=== PATIENT | female | born 1995 | race Caucasian/White ===

== ENCOUNTER 2017-02-19 14:48 | Emergency (ER) ==
[2017-02-19 14:53] VITALS: BP 118/65; TEMP 100; BMI 30.1
[2017-02-19 15:28] LABS: BASOPHILS % (AUTO) 0.1 % (0.0-3.0); EOSINOPHILS # (AUTO) 0.1 K/ul (0.0-0.7); EOSINOPHILS % (AUTO) 0.7 % (0.0-7.0); HEMATOCRIT 39.7 % (37.0-47.0); HEMOGLOBIN 13.7 g/dl (12.0-16.0); IMMATURE GRANULOCYTE % (AUTO) 0.2 % (0.0-5.0); LYMPHOCYTES % (AUTO) 10.6 (10.0-50.0); MEAN CORPUSCULAR HEMOGLOBIN 30.6 pg (27.0-31.0); MEAN CORPUSCULAR HGB CONC 34.5 (31.8-35.4); MEAN CORPUSCULAR VOLUME 88.8 fl (81.0-99.0); MONOCYTES # (AUTO) 0.7 K/uL (0.4-2.0); MONOCYTES % (AUTO) 7.6 (0-10); NEUTROPHILS # (AUTO) 7.3 K/ul (2.0-6.9); NEUTROPHILS % (AUTO) 80.8; PLATELET COUNT 241 10^3/uL (140-440); RED BLOOD COUNT 4.47 10^6/ul (4.20-5.40); WHITE BLOOD COUNT 8.97 K/ul (4.6-10.2)
[2017-02-19 15:29] LABS: BILIRUBIN,URINE 1+ (NEGATIVE); KETONES,URINE 3+ (NEGATIVE); LEUKOCYTE ESTERASE ,URINE Negative (NEGATIVE); NITRITE,URINE Negative (NEGATIVE); PH,URINE 5.5 (5-9); PROTEIN,URINE Trace (NEGATIVE); URINE, BLOOD 1+ (NEGATIVE)
[2017-02-19 15:32] LABS: URINE PREGNANCY INTERNAL QC INTERNAL QC VALID
[2017-02-19 15:40] LABS: FLU INTERNAL QC INTERNAL QC VALID; RAPID FLU A NEGATIVE (NEGATIVE); RAPID FLU B NEGATIVE (NEGATIVE)
[2017-02-19 15:42] LABS: ADD URINE MICROSCOPIC YES
[2017-02-19 15:43] LABS: BACTERIA,URINE TRACE (NOT PRESENT)
[2017-02-19 15:46] LABS: ALBUMIN 4.3 g/dL (3.4-5.0); ALBUMIN/GLOBULIN RATIO 1.23; ANION GAP 11.8; BILIRUBIN,TOTAL 1.21 mg/dL (0.00-1.20); BUN/CREATININE RATIO 10.25; CALCIUM 9.3 mg/dL (8.2-10.2); CREATININE 0.78 mg/dL (0.60-1.30); POTASSIUM 3.8 mmol/L (3.5-5.10); TOTAL PROTEIN 7.8 g/dL (6.4-8.2)
--- NOTE | 2017-02-19 16:04 | CT ---
EXAM: CT Abdomen without contrast. CT Pelvis without contrast. HISTORY: Generalized abdominal pain. Nausea, vomiting, diarrhea. COMPARISON: 11/04/2016. TECHNIQUE: Multiple axial images of the abdomen and pelvis were obtained without intravenous contra st. Images were reformatted in the coronal plane. FINDINGS: Please note that evaluation of the abdominal and pelvic structures is limited due to lack of intravenous contrast. The lung bases are clear. No acute osseous abnormality identified. The liver, gallbladder, pancreas, spleen, adrenal glands, and kidneys demonstrate normal contour. N o calcified renal stones or hydronephrosis detected. The bowel is normal in course and caliber without evidence for obstruction or inflammatory process. The appendix is not seen. Uterus demonstrates normal contour. Urinary bladder is collapsed. Tiny amount of free pelvic fluid noted. No free air identified. Small fat-containing umbilical hernia is present IMPRESSION: No acute abnormality in the abdomen or pelvis.
--- NOTE | 2017-02-19 16:21 | ED.PDOC ---
General ED Provider: Dr. DONG MANRIQUE Chief Complaint: Nausea/Vomiting Stated Complaint: n,v,d Time Seen by Physician: 15:00 Mode of Arrival: Walk-In Information Source: Patient Exam Limitations: No limitations Nursing and Triage Documentation Reviewed and Agree: Yes GI Complaint Exam - Vomiting/Diarrhea Complaint/Exam Onset/Duration: 1 day Symptoms Are: Still present Episodes of Vomiting over last 24 Hours: 1 Episodes of Diarrhea Over Last 24 Hours: 4 Initial Severity: Moderate Current Severity: Moderate Character of Vomiting: Reports: Non-bilious Aggravating: Reports: None Alleviating: Reports: None Associated Signs and Symptoms: Denies: Dizziness, Light-headedness, Melena, Hematemesis, Fever, Abdominal pain, Cramping Related History: Reports: Similar episode Non-GI Risk Factors: Reports: None Surgical Obstruction Risk Factors: Reports: None Related Surgical History: Reports: None Abdominal Findings: Present: None Review of Systems - Review Of Systems Constitutional: Reports: No symptoms Eyes: Reports: No symptoms Ears, Nose, Mouth, Throat: Reports: No symptoms Respiratory: Reports: No symptoms Cardiac: Reports: No symptoms GI: Reports: Diarrhea, Nausea, Vomiting : Reports: No symptoms Musculoskeletal: Reports: No symptoms Skin: Reports: No symptoms Neurological: Reports: No symptoms Endocrine: Reports: No symptoms Hematologic/Lymphatic: Reports: No symptoms All Other Systems: Reviewed and Negative Past Medical History - Past Medical History Endocrine: Reports: None Cardiovascular: Reports: None Respiratory: Reports: None Hematological: Reports: Other (HLH (BLOOD DISORDER)) Gastrointestinal: Reports: None Genitourinary: Reports: None Neuro/Psych: Reports: None Musculoskeletal: Reports: None Cancer: Reports: None Last Menstrual Period: past year--periods irregular Other Pertinent Past Medical History: HLH;HLH stands for hemophagocytic lymphohistiocytosis. - Surgical History General Surgical History: Reports: None - Family History Family History: Reports: None - Social History Smoking Status: Never smoker Hx Substance Use: No Alcohol Screening: Occasionally Physical Exam - Physical Exam Appearance: Well-appearing, No pain distress, Well-nourished Eyes: TYSON, EOMI, Conjunctiva clear ENT: Ears normal, Nose normal, Oropharynx normal Respiratory: Airway patent, Breath sounds clear, Breath sounds equal, Respirations nonlabored Cardiovascular: RRR, Pulses normal, No rub, No murmur GI/: Soft, Nontender, No masses, Bowel sounds normal, No Organomegaly Musculoskeletal: Normal strength, ROM intact, No edema, No calf tenderness Skin: Warm, Dry, Normal color Neurological: Sensation intact, Motor intact, Reflexes intact, Cranial nerves intact, Alert, Oriented Psychiatric: Affect appropriate, Mood appropriate Critical Care Note - Critical Care Note Total Time (mins): 0 Course - Course Hematology/Chemistry: 02/19/17 15:23 02/19/17 15:23 Orders, Labs, Meds: Lab Review 02/19/17 02/19/17 15:15 15:23 WBC 8.97 RBC 4.47 Hgb 13.7 Hct 39.7 MCV 88.8 MCH 30.6 MCHC 34.5 RDW Coeff of Jese 11.9 Plt Count 241 Immature Gran % (Auto) 0.2 Neut % (Auto) 80.8 Lymph % (Auto) 10.6 [place] % (Auto) 7.6 Eos % (Auto) 0.7 Baso % (Auto) 0.1 Immature Gran # (Auto) 0.0 Neut # 7.3 H Lymph # 1.0 [place] # 0.7 Eos # 0.1 Baso # 0.0 Sodium 138 Potassium 3.8 Chloride 105 Carbon Dioxide 25 Anion Gap 11.8 BUN 8 Creatinine 0.78 Estimated GFR (MDRD) 92.00 BUN/Creatinine Ratio 10.25 Glucose 86 Calcium 9.3 Total Bilirubin 1.21 H AST 23 ALT 25 Alkaline Phosphatase 68 Total Protein 7.8 Albumin 4.3 Globulin 3.5 Albumin/Globulin Ratio 1.23 Urine Color Yellow Urine Clarity Clear Urine pH 5.5 Ur Specific [place] 1.025 Urine Protein Trace Urine Glucose (UA) Negative Urine Ketones 3+ Urine Blood 1+ Urine Nitrite Negative Urine Bilirubin 1+ Urine Urobilinogen 0.2 Ur Leukocyte Esterase Negative Urine Microscopic RBC 2-5 Urine Microscopic WBC 0-2 Ur Squamous Epith Cells 2-5 Urine Bacteria Trace Urine Mucus 2+ Urine Test Negative Influenza A (Rapid) Negative Influenza B (Rapid) Negative Orders Category Date Time Status CBC W/ AUTO DIFF Stat LAB 02/19/17 15:23 Completed COMPREHENSIVE METABOLIC PANEL Stat LAB 02/19/17 15:23 Completed MOLECULAR GROUP A STREP Stat LAB 02/19/17 15:15 Results RAPID FLU A/B Stat LAB 02/19/17 15:15 Completed STREP SCREEN Stat LAB 02/19/17 15:15 Results URINALYSIS C & S IF INDICATED Stat LAB 02/19/17 15:15 Completed URINE Stat LAB 02/19/17 15:[address] ABDOMEN/PELVIS WO CONTRAST Stat RADS 02/19/17 15:16 Completed Vital Signs: Temp Pulse Resp BP Pulse Ox 02/19/17 14:48 100 F H 78 16 118/65 96 Departure - Departure Time of Disposition: 16:21 Disposition: HOME SELF-CARE Discharge Problem: Nausea, Vomiting, Viral syndrome Instructions: Viral Syndrome (ED) Condition: Good Pt referred to PMD for follow-up: No Allergies/Adverse Reactions: Allergies No Known Allergies Allergy (Verified 02/19/17 14:55) Home Medications: Ambulatory Orders 1 [No Reported Medications] 07/07/16
== END 2017-02-19 16:34 | disposition home or self-care (01) ==
LOC: ED 14:48
DX: R11.2 Nausea with vomiting, unspecified (principal); B34.9 Viral infection, unspecified
CPT/HCPCS: 36415; 80053; 81001; 81025; 85025; 87651; 87804; 87880; 99283

== ENCOUNTER 2017-07-09 15:52 | Emergency (ER) ==
[2017-07-09 15:53] VITALS: BMI 30.1
[2017-07-09 15:57] VITALS: BP 133/77; TEMP 98.7
--- NOTE | 2017-07-09 16:19 | ED.PDOC ---
General ED Provider: Dr. DONG MANRIQUE Chief Complaint: Abdominal Pain Stated Complaint: menstural cramps Time Seen by Physician: 16:00 (seen with hamzah at all times ) Mode of Arrival: Walk-In Information Source: Patient Exam Limitations: No limitations Nursing and Triage Documentation Reviewed and Agree: Yes GI Complaint Exam - Abdominal Pain Complaint/Exam Onset: Gradual Duration: started her cycle 2 days ago Symptoms Are: Still present Timing: Intermittent Initial Severity: Moderate Current Severity: Moderate Location of Pain: RLQ, LLQ Character: Reports: Cramping Aggravating: Reports: None Alleviating: Reports: None Associated Signs and Symptoms: Denies: Diaphoresis, Fever, Cough, Chest pain, Dizziness, Back pain, Constipation, Blood in stool, Dysuria, Urinary frequency, Decreased urine output, Decreased appetite, Vaginal bleeding, Vaginal discharge , Nausea, Vomiting, Diarrhea, Sore throat, Decreased activity AAA Risk Factors: Reports: None Cardiac Risk Factors: Reports: None Ectopic Risk Factors: Reports: None Ovarian Torsion Risk Factors: Reports: None Surgical Obstruction Risk Factors: Reports: None Related Surgical History: Reports: None Patient Rh Status: Unknown Abdominal Findings: Present: None Review of Systems - Review Of Systems Constitutional: Reports: No symptoms Eyes: Reports: No symptoms Ears, Nose, Mouth, Throat: Reports: No symptoms Respiratory: Reports: No symptoms Cardiac: Reports: No symptoms GI: Reports: Abdominal pain : Reports: No symptoms Musculoskeletal: Reports: No symptoms Skin: Reports: No symptoms Neurological: Reports: No symptoms Endocrine: Reports: No symptoms Hematologic/Lymphatic: Reports: No symptoms All Other Systems: Reviewed and Negative Past Medical History - Past Medical History Previously Healthy: Yes Endocrine: Reports: None Cardiovascular: Reports: None Respiratory: Reports: None Hematological: Reports: Other (HLH (BLOOD DISORDER)) Gastrointestinal: Reports: None Genitourinary: Reports: None Neuro/Psych: Reports: None Musculoskeletal: Reports: None Cancer: Reports: None Last Menstrual Period: 07/09/17 Other Pertinent Past Medical History: HLH;HLH stands for hemophagocytic lymphohistiocytosis. - Surgical History General Surgical History: Reports: None - Family History Family History: Reports: None - Social History Smoking Status: Never smoker Hx Substance Use: No Alcohol Screening: Occasionally - Immunizations Tetanus Shot up to Date: Yes Physical Exam - Physical Exam Appearance: Well-appearing, No pain distress, Well-nourished Eyes: TYSON, EOMI, Conjunctiva clear ENT: Ears normal, Nose normal, Oropharynx normal Respiratory: Airway patent, Breath sounds clear, Breath sounds equal, Respirations nonlabored Cardiovascular: RRR, Pulses normal, No rub, No murmur GI/: Soft, Nontender, No masses, Bowel sounds normal, No Organomegaly Musculoskeletal: Normal strength, ROM intact, No edema, No calf tenderness Skin: Warm, Dry, Normal color Neurological: Sensation intact, Motor intact, Reflexes intact, Cranial nerves intact, Alert, Oriented Psychiatric: Affect appropriate, Mood appropriate Critical Care Note - Critical Care Note Total Time (mins): 0 Course - Course Vital Signs: Temp Pulse Resp BP Pulse Ox 07/09/17 15:53 98.7 F 94 H 20 133/77 98 Departure - Departure Time of Disposition: 16:18 Disposition: HOME SELF-CARE Discharge Problem: Abdominal pain Instructions: Abdominal Pain (ED) Condition: Good Pt referred to PMD for follow-up: Yes Additional Instructions: Please call your Family Physician as soon as possible to schedule a follow-up appointment. Allergies/Adverse Reactions: Allergies No Known Allergies Allergy (Verified 02/19/17 14:55) Home Medications: Ambulatory Orders 1 [No Reported Medications] 07/07/16
== END 2017-07-09 16:26 | disposition home or self-care (01) ==
LOC: ED 15:52
DX: R10.30 Lower abdominal pain, unspecified (principal)
CPT/HCPCS: 99281

== ENCOUNTER 2017-08-09 08:17 | Outpatient (CLI) ==
[2013-04-24 11:35] VITALS: TEMP 97.9
--- NOTE | 2017-08-09 09:01 | US ---
EXAM: Ultrasound abdomen limited. HISTORY: Abdominal pain. COMPARISON: CT 02/19/2017. TECHNIQUE: Abdominal, real time with image documentation: limited (eg, single organ, quadrant, foll ow-up) FINDINGS: The liver demonstrates homogeneous echotexture without intrahepatic biliary dilatation. P ortal venous flow is normal in direction. The gallbladder is without shadowing stones, wall thickeni ng or pericholecystic fluid. Common duct measures approximately 0.3 cm. Visualized portions of the pancreas are unremarkable. IMPRESSION: No sonographic abnormality of the liver, gallbladder or biliary system.
== END 2017-08-09 08:18 | disposition home or self-care (01) ==
LOC: RAD 08:17
PROVIDERS: ATTEND Nurse Practitioner Family
DX: R10.9 Unspecified abdominal pain (principal); R19.7 Diarrhea, unspecified; R10.811 Right upper quadrant abdominal tenderness

== ENCOUNTER 2017-08-11 07:20 | Outpatient (CLI) ==
[2013-04-24 11:35] VITALS: TEMP 97.9
[2017-08-11 08:35] LABS: URINE PREGNANCY INTERNAL QC INTERNAL QC VALID
--- NOTE | 2017-08-11 10:53 | NM ---
EXAM: Hepatobiliary imaging HISTORY: Abdominal pain COMPARISON: Limited abdominal ultrasound on 08/09/2017 showed no abnormality. TECHNIQUE: Patient was injected 5 mCi of technetium 99m Choletec intravenously. Multiple anterior sc intigraphic images of the right upper quadrant region of the abdomen were obtained up to 1 hour inter [place]. Patient was subsequently given fatty meal and gallbladder ejection fraction was calculated. FINDINGS: There is normal visualization of liver, gallbladder, bile duct and small bowel loops. Gall bladder ejection fraction is 54%. IMPRESSION: Normal study
== END 2017-08-11 07:21 | disposition home or self-care (01) ==
LOC: RAD 07:20
PROVIDERS: ATTEND Nurse Practitioner Family
DX: R10.9 Unspecified abdominal pain (principal); R19.7 Diarrhea, unspecified; R10.811 Right upper quadrant abdominal tenderness; Y63.3 Inadvertent exposure of patient to radiation during medical care
CPT/HCPCS: 81025

== ENCOUNTER 2017-11-23 15:57 | Outpatient (CLI) ==
[2013-04-24 11:35] VITALS: TEMP 97.9
== END 2017-11-23 15:58 | disposition home or self-care (01) ==
LOC: LAB 15:57
PROVIDERS: ATTEND Nurse Practitioner Family
DX: R05 Cough (principal); R50.9 Fever, unspecified
CPT/HCPCS: 87651; 87804

== ENCOUNTER 2018-02-18 07:51 | Outpatient (CLI) ==
[2013-04-24 11:35] VITALS: TEMP 97.9
== END 2018-02-18 07:52 | disposition home or self-care (01) ==
LOC: LAB 07:51
PROVIDERS: ATTEND Nurse Practitioner Family
DX: N92.6 Irregular menstruation, unspecified (principal); R10.9 Unspecified abdominal pain; R11.2 Nausea with vomiting, unspecified; R10.813 Right lower quadrant abdominal tenderness
CPT/HCPCS: 36415; 80053; 84703; 85025

== ENCOUNTER 2018-02-22 09:47 | Outpatient (CLI) ==
[2013-04-24 11:35] VITALS: TEMP 97.9
--- NOTE | 2018-02-22 11:08 | CT ---
EXAM: CT ABDOMEN AND PELVIS HISTORY: Worsening chronic abdominal pain TECHNIQUE: CT abdomen and pelvis with intravenous contrast. Images were reconstructed using 5 mm sec tion thickness. Reformations were prepared. 75 mL Omnipaque. COMPARISON: 02/19/2017 FINDINGS: Liver and spleen appear normal. Gallbladder, pancreas and adrenal glands appear normal. Normal enha ncement of the kidneys without hydronephrosis. No evidence of ureteral obstruction. Normal abdomina l aorta. No gastric distension. What appears represent a few loops of a normal appendix are identified in the right lower quadrant. The cecum lies within the lower right aspect of the anatomic pelvis. Bowel g as pattern is unremarkable. Uterus and urinary bladder are unremarkable. Prominent sized ovaries bi laterally suggesting multiple small follicles. Trace amount of pelvic ascites appears simple. No ventral abdominal wall hernia. No acute bony abnormality. There is mild scoliosis and subtle dege nerative endplate changes. Lung bases are free of infiltrate. No pneumoperitoneum. IMPRESSION: 1. No acute intra-abdominal or pelvic abnormality identified. 2. Prominent bilateral ovaries suggesting multiple small follicles. 3. Trace amount of simple pelvic ascites, possibly physiologic in nature. 4. Mild scoliosis. Subtle degenerate endplate changes of the spine.
== END 2018-02-22 09:48 | disposition home or self-care (01) ==
LOC: RAD 09:47
PROVIDERS: ATTEND Nurse Practitioner Family
DX: R10.813 Right lower quadrant abdominal tenderness (principal); R10.9 Unspecified abdominal pain; R11.2 Nausea with vomiting, unspecified

== ENCOUNTER 2019-03-29 15:17 | Outpatient (CLI) ==
[2013-04-24 11:35] VITALS: TEMP 97.9
== END 2019-03-29 15:18 | disposition home or self-care (01) ==
LOC: RHC-LAB 15:17
PROVIDERS: ATTEND Nurse Practitioner Family
DX: J02.9 Acute pharyngitis, unspecified (principal)
CPT/HCPCS: 87651